=== PATIENT | female | born 2005 | race Caucasian/White ===

== ENCOUNTER 2024-03-21 13:05 | Emergency (ER) | payer SELFPAY ==
[2024-03-21] MEDS: Acetaminophen 500 MG Tab PO ONE (14:24)
[2024-03-21 14:28] LABS: APPEARANCE,URINE CLEAR; BILIRUBIN,URINE NEGATIVE (NEGATIVE); COLOR,URINE YELLOW; GLUCOSE,URINE NEGATIVE (NEGATIVE); KETONES,URINE NEGATIVE (NEGATIVE); LEUKOCYTE ESTERASE,URINE NEGATIVE (NEGATIVE); NITRITE,URINE NEGATIVE (NEGATIVE); OCCULT BLOOD,URINE NEGATIVE (NEGATIVE); PROTEIN,URINE NEGATIVE (NEGATIVE); UROBILINOGEN,URINE 0.2 EU/dL (<2.0)
== END 2024-03-21 15:22 | disposition home or self-care (01) ==
LOC: MW.ED 13:05
DX: R10.2 Pelvic and perineal pain (principal); Z75.8 Other problems related to medical facilities and other health care
CPT/HCPCS: 81003; 81025; 99284; A9270

== ENCOUNTER 2024-09-25 09:57 | Emergency (ER) | payer BC ==
[2024-09-25] MEDS: Ketorolac 10 MG Tab PO ONE (10:37)
[2024-09-25] MEDS: Ondansetron 4 MG Tab.DIS PO ONE (10:37)
[2024-09-25 11:09] LABS: APPEARANCE,URINE CLEAR; BILIRUBIN,URINE NEGATIVE (NEGATIVE); COLOR,URINE YELLOW; GLUCOSE,URINE NEGATIVE (NEGATIVE); KETONES,URINE TRACE mg/dL (NEGATIVE); LEUKOCYTE ESTERASE,URINE NEGATIVE (NEGATIVE); NITRITE,URINE NEGATIVE (NEGATIVE); OCCULT BLOOD,URINE NEGATIVE (NEGATIVE); PROTEIN,URINE NEGATIVE (NEGATIVE)
== END 2024-09-25 11:42 | disposition home or self-care (01) ==
LOC: MW.ED 09:57
DX: N94.6 Dysmenorrhea, unspecified (principal); Z97.5 Presence of (intrauterine) contraceptive device; Z79.899 Other long term (current) drug therapy; Z75.3 Unavailability and inaccessibility of health-care facilities
CPT/HCPCS: 76830; 81003; 81025; 99284; A9270; 99283

== ENCOUNTER 2024-12-11 11:41 | Emergency (ER) | payer BC ==
[2024-12-11 16:45] LABS: APPEARANCE,URINE SLT CLOUDY; GLUCOSE,URINE NEGATIVE (NEGATIVE); OCCULT BLOOD,URINE NEGATIVE (NEGATIVE)
[2024-12-11] MEDS: Ketorolac 30 MG/ML SDV IM ONE (17:10)
[2024-12-11] MEDS: diphenhydrAMINE 50 MG/ML SDV IM ONE (17:10)
[2024-12-11] MEDS: Prochlorperazine 10 MG/2 ML SDV IM ONE (17:10)
== END 2024-12-11 17:20 | disposition home or self-care (01) ==
LOC: MW.ED 11:41
DX: S06.0XAA Concussion with loss of consciousness status unknown, initial encounter (principal); Z75.3 Unavailability and inaccessibility of health-care facilities; Z79.899 Other long term (current) drug therapy
CPT/HCPCS: 70450; 81003; 81025; 99284; A9270; 99283